=== PATIENT | female | born 1965 | race Two or more races ===

== ENCOUNTER 2019-02-19 02:28 | Outpatient (CLI) | payer BC ==
[~2019-02-19 02:28] MED LIST: FERR1TAB9 PO; LEVO175T2 PO; LISI40TA4 PO
== END 2019-02-19 23:59 | disposition home or self-care (01) ==
LOC: DIABETIC 02:28
PROVIDERS: ATTEND Family Medicine
DX: E11.9 Type 2 diabetes mellitus without complications (principal); I10 Essential (primary) hypertension; Z79.84 Long term (current) use of oral hypoglycemic drugs
CPT/HCPCS: G0108